=== PATIENT | female | born 1980 | race Caucasian/White ===

== ENCOUNTER 2023-05-26 06:34 | Day surgery (SDC) | payer OTHER ==
[~2023-05-26] VITALS: Ht 162.6 cm; Wt 98.8 kg
[2023-05-26] VITALS (18 sets, daily range): BP systolic 115–165; BP diastolic 67–141
[~2023-05-26 06:34] MED LIST: BIRTH CONTROL
--- NOTE | 2023-05-26 06:50 | NUR ---
Ambulatory in Day Surgery History, Chart, Medications and Allergies reviewed before start of procedure.Lungs clear T/O to Auscultation. Patient confirms NPO status and agrees with scheduled surgery. Patient reports completing Chlorhexadine shower X2 prior to admission to hospital.Surgical site prepped with 2% Chlorhexidine cloth wipe. Patient States Post-Procedure ride home has been arranged.
--- NOTE | 2023-05-26 10:55 | NUR ---
pt arrived to unit from pacu NAUSEATED AND DRY HEAVING. NOTIFIED DR MARTINI, ORDERS OBTAINED. LAP INCISIONS X4 TO ABD W/TISSUE ADHESIVE CDI. NO VAG DRAINAGE NOTED AT THIS TIME. VSS. ORIENTED TO USE OF CALL LIGHT. AT BEDSIDE.
--- NOTE | 2023-05-26 17:50 | NUR ---
summary POD 0 FOR TOTAL LAP HYSTER. PT HAS BEEN UP TO RESTROOM AND VOIDED. HAS BEEN NAUSEATED W/SOME EMESIS T/O MOST OF SHIFT SINCE ARRIVING TO UNIT FROM PACU. MEDICATED PER ORDERS T/O DAY FOR N/V. WAS ABLE TO TOLERATE POPSICLE, FEW SIPS OF WATER AND SMALL AMOUNT OF DINNER ROLL ONLY T/O DAY. VSS. CALL LIGHT IN REACH. SPOUSE BEDSIDE.
[2023-05-27 02:48] VITALS: BP 117/78
--- NOTE | 2023-05-27 03:53 | NUR ---
SHIFT SUMMARY POD 1 TOTAL LAP HYSTR. NO ACUTE CHANGES OVERNIGHT. VSS, PT ON BIOX TO MONITOR HR; HX OF CHRONIC LOW HR IN 40s. LAP SITE x4 C/D/I. PT REPORTED NAUSEA AT THE BEGINNING OF THE SHIFT, PT REPORTED RELIEF WITH MEDICATION PER EMAR. PT TOLERATING ORALS. REPORTS PAIN MANAGED PER EMAR. PT AMBULATING TO RESTROOM SBA. VOIDING PINK DRAINAGE, PT REPORTS LESS SANGUINOUS DRAINAGE WITH EACH VOID. SIGNIFICANT OTHER AT BEDSIDE T/O THE NIGHT. ANTICIPATED DISCHARGE LATER TODAY. CALL LIGHT WITHIN REACH, BED IN LOWEST POSITION, WILL REPORT TO DAY RN.
[2023-05-27 07:40] VITALS: BP 101/72
[2023-05-27] MEDS ORDERED: ONDA4 PO (08:22)
[2023-05-27] MEDS ORDERED: ACET500 PO (08:22)
[2023-05-27] MEDS ORDERED: IBUP800 PO (08:23)
[2023-05-27] MEDS ORDERED: OXYC5 PO (08:23)
--- NOTE | 2023-05-27 09:32 | NUR ---
DISCHARGE SUMMARY PT A&OX4, VSS/RA, CLEM PO, VOIDING, AMB IND IN ROOM/SHOWERED/DRESSED SELF, PAIN MANAGED, IVS DC X2. POD1, 4 LAP SITES CDI. DC INS PROVIDED. PT AND S.O. REP UNDERSTANDING THOSE INSTRUCTIONS. LEFT FLOOR VIA WC WITH ALL PERSONAL POSSESSIONS TO GO HOME WITH S.O.,INCLUDING DC INS; REP SCRIPTS FILLED AND IN THEIR POSSESSION.
== END 2023-05-27 09:12 | disposition home or self-care (01) ==
LOC: ORSCMMR 06:34 → SURS 06:34 → ORSCMMR 06:36 → ORD 07:30 → SURS 10:17 → ORSCMMR 05-27 09:12
PROVIDERS: Obstetrics & Gynecology
PROC: 0UT0FZZ Resection of Right Ovary, Via Natural or Artificial Opening With Percutaneous Endoscopic Assistance (ICD-10-PCS; principal; 2023-05-26 07:30)
PROC: 0UT9FZZ Resection of Uterus, Via Natural or Artificial Opening With Percutaneous Endoscopic Assistance (ICD-10-PCS; principal; 2023-05-26 07:30)
PROC: 0UT7FZZ Resection of Bilateral Fallopian Tubes, Via Natural or Artificial Opening With Percutaneous Endoscopic Assistance (ICD-10-PCS; principal; 2023-05-26 07:30)
DX: N92.0 Excessive and frequent menstruation with regular cycle (principal); R10.2 Pelvic and perineal pain; D25.9 Leiomyoma of uterus, unspecified; Q50.5 Embryonic cyst of broad ligament; N83.8 Other noninflammatory disorders of ovary, fallopian tube and broad ligament; N80.101 Endometriosis of right ovary, unspecified depth; J45.909 Unspecified asthma, uncomplicated; F17.210 Nicotine dependence, cigarettes, uncomplicated; E66.9 Obesity, unspecified; Z68.37 Body mass index [BMI] 37.0-37.9, adult; Z79.899 Other long term (current) drug therapy
CPT/HCPCS: 88307; 94762; A9270; J1100; J1170; J1580; J1885; J2250; J2371; J2405; J2704; J2765; J3010; J7120